=== PATIENT | female | born 1980 | race Caucasian/White ===

== ENCOUNTER → 2016-10-11 | Outpatient (CLI) | payer MEDICAID ==
[~2016-10-11] MED LIST: CPR500T PO; HYDR-229 PO; HYDR-3583 PO; LOSA50TA6 PO; ONDN4T PO; SULF1TAB35 PO; TRM50T PO
--- OUTSIDE RECORDS SUMMARY | 2016-10-11 09:10 | XMS REPORT | Continuity of Care Document ---
Author Author [facility] Address Unknown Phone Unavailable Allergies Active Description Code Type Severity Reaction Onset Reported/Identified Relationship to Patient Clinical Status Yes Bactrim DS 800-160 mg tablet Drug Allergy N/A N/A 10/24/2014 Medications Problems Date Dx Coded Attending Type Code Diagnosis Diagnosed By 03/05/2008 V05.8 Gardasil, Shingles, Other Specified Disease 03/05/2008 WESLEY CLARK DO V05.8 Gardasil, Shingles, Other Specified Disease 03/05/2008 WESLEY CLARK DO V05.8 Gardasil, Shingles, Other Specified Disease 03/05/2008 V05.8 Gardasil, Shingles, Other Specified Disease 03/05/2008 V05.8 Gardasil, Shingles, Other Specified Disease 03/05/2008 V05.8 Gardasil, Shingles, Other Specified Disease 03/05/2008 V05.8 Gardasil, Shingles, Other Specified Disease 03/05/2008 V05.8 Gardasil, Shingles, Other Specified Disease 03/05/2008 BRIGITTE LEWIS MD V05.8 Gardasil, Shingles, Other Specified Disease 03/05/2008 WESLEY CLARK DO V05.8 Gardasil, Shingles, Other Specified Disease 03/05/2008 CHRIS MORALES APRN A V05.8 Gardasil, Shingles, Other Specified Disease 03/05/2008 JHONNY JENSEN APRNA S V05.8 Gardasil, Shingles, Other Specified Disease 03/05/2008 LYNN JENSEN APRN S V05.8 Gardasil, Shingles, Other Specified Disease 03/05/2008 CARMEN WHITE CHRIS A V05.8 Gardasil, Shingles, Other Specified Disease 03/05/2008 JHONNY JENSEN APRNA S V05.8 Gardasil, Shingles, Other Specified Disease 03/05/2008 EDMUND SKAGGS APRN V05.8 Gardasil, Shingles, Other Specified Disease 03/05/2008 EDMUND SKAGGS APRN V05.8 Gardasil, Shingles, Other Specified Disease 03/05/2008 LYNN JENSEN APRN S V05.8 Gardasil, Shingles, Other Specified Disease 03/05/2008 CHRIS MORALES APRN A V05.8 Gardasil, Shingles, Other Specified Disease 03/05/2008 MALLORY MORALES APRNIDI A V05.8 Gardasil, Shingles, Other Specified Disease 03/05/2008 LYNN JENSEN APRN S V05.8 Gardasil, Shingles, Other Specified Disease 04/05/2008 840.9 Sprain/strain Shoulder/arm 04/05/2008 WESLEY CLARK DO 840.9 Sprain/strain Shoulder/arm 04/05/2008 WESLEY CLARK DO 840.9 Sprain/strain Shoulder/arm 04/05/2008 840.9 Sprain/strain Shoulder/arm 04/05/2008 840.9 Sprain/strain Shoulder/arm 04/05/2008 840.9 Sprain/strain Shoulder/arm 04/05/2008 840.9 Sprain/strain Shoulder/arm 04/05/2008 840.9 Sprain/strain Shoulder/arm 04/05/2008 BRIGITTE LEWIS MD 840.9 Sprain/strain Shoulder/arm 04/05/2008 WESLEY CLARK DO 840.9 Sprain/strain Shoulder/arm 04/05/2008 CHRIS MORALES APRN A 840.9 Sprain/strain Shoulder/arm 04/05/2008 LYNN JENSEN APRN S 840.9 Sprain/strain Shoulder/arm 04/05/2008 LYNN JENSEN APRN S 840.9 Sprain/strain Shoulder/arm 04/05/2008 CHRIS MORALES APRN A 840.9 Sprain/strain Shoulder/arm 04/05/2008 LYNN JENSEN APRN S 840.9 Sprain/strain Shoulder/arm 04/05/2008 GILES RAILWAY EQUIPMENT OPERATOR, EDMUND T 840.9 Sprain/strain Shoulder/arm 04/05/2008 GILES HOLDERN, EDMUND T 840.9 Sprain/strain Shoulder/arm 04/05/2008 MIKEY RAILWAY EQUIPMENT OPERATOR, LYNN S 840.9 Sprain/strain Shoulder/arm 04/05/2008 CAREMN RAILWAY EQUIPMENT OPERATOR, CHRIS A 840.9 Sprain/strain Shoulder/arm 04/05/2008 CARMEN RAILWAY EQUIPMENT OPERATOR, CHRIS A 840.9 Sprain/strain Shoulder/arm 04/05/2008 MIKEY RAILWAY EQUIPMENT OPERATOR, LYNN S 840.9 Sprain/strain Shoulder/arm 06/03/2008 346.90 Migraine Unspecified Without Intractable Migraine 06/03/2008 WESLEY CLARK DO K 346.90 Migraine Unspecified Without Intractable Migraine 06/03/2008 WESLEY CLARK DO K 346.90 Migraine Unspecified Without Intractable Migraine 06/03/2008 346.90 Migraine Unspecified Without Intractable Migraine 06/03/2008 346.90 Migraine Unspecified Without Intractable Migraine 06/03/2008 346.90 Migraine Unspecified Without Intractable Migraine 06/03/2008 346.90 Migraine Unspecified Without Intractable Migraine 06/03/2008 346.90 Migraine Unspecified Without Intractable Migraine 06/03/2008 BRIGITTE LEWIS MD 346.90 Migraine Unspecified Without Intractable Migraine 06/03/2008 WESLEY CLARK DO K 346.90 Migraine Unspecified Without Intractable Migraine 06/03/2008 CARMEN RAILWAY EQUIPMENT OPERATOR, CHRIS A 346.90 Migraine Unspecified Without Intractable Migraine 06/03/2008 MIKEY RAILWAY EQUIPMENT OPERATOR, LYNN S 346.90 Migraine Unspecified Without Intractable Migraine 06/03/2008 MIKEY HOLDERN, LYNN S 346.90 Migraine Unspecified Without Intractable Migraine 06/03/2008 CARMEN RAILWAY EQUIPMENT OPERATOR, CHRIS A 346.90 Migraine Unspecified Without Intractable Migraine 06/03/2008 MIKEY HOLDERN, LYNN S 346.90 Migraine Unspecified Without Intractable Migraine 06/03/2008 EDMUND SKAGGS APRN T 346.90 Migraine Unspecified Without Intractable Migraine 06/03/2008 EDMUND SKAGGS APRN T 346.90 Migraine Unspecified Without Intractable Migraine 06/03/2008 MIKEY RAILWAY EQUIPMENT OPERATOR, LYNN S 346.90 Migraine Unspecified Without Intractable Migraine 06/03/2008 CARMEN RAILWAY EQUIPMENT OPERATOR, CHRIS A 346.90 Migraine Unspecified Without Intractable Migraine 06/03/2008 CARMEN RAILWAY EQUIPMENT OPERATOR, CHRIS A 346.90 Migraine Unspecified Without Intractable Migraine 06/03/2008 MIKEY RAILWAY EQUIPMENT OPERATOR, LYNN S 346.90 Migraine Unspecified Without Intractable Migraine 11/13/2008 V05.9 Immunization, Single, Unspec. 11/13/2008 V72.41 Test Negative Result 11/13/2008 AMBER DO WESLEY K V05.9 Immunization, Single, Unspec. 11/13/2008 CLARK DO, WESLEY K V72.41 Test Negative Result 11/13/2008 CLARK DO, WESLEY K V05.9 Immunization, Single, Unspec. 11/13/2008 CLARK DO, WESLEY K V72.41 Test Negative Result 11/13/2008 V05.9 Immunization, Single, Unspec. 11/13/2008 V72.41 Test Negative Result 11/13/2008 V05.9 Immunization, Single, Unspec. 11/13/2008 V72.41 Test Negative Result 11/13/2008 V05.9 Immunization, Single, Unspec. 11/13/2008 V72.41 Test Negative Result 11/13/2008 V05.9 Immunization, Single, Unspec. 11/13/2008 V72.41 Test Negative Result 11/13/2008 V05.9 Immunization, Single, Unspec. 11/13/2008 V72.41 Test Negative Result 11/13/2008 BRIGITTE LEWIS MD V05.9 Immunization, Single, Unspec. 11/13/2008 BRIGITTE LEWIS MD V72.41 Test Negative Result 11/13/2008 AMINA CLARK DOA K V05.9 Immunization, Single, Unspec. 11/13/2008 AMBER CLIFTON, WESLEY K V72.41 Test Negative Result 11/13/2008 CARMEN RAILWAY EQUIPMENT OPERATOR, CHRIS A V05.9 Immunization, Single, Unspec. 11/13/2008 CARMEN RAILWAY EQUIPMENT OPERATOR, CHRIS A V72.41 Test Negative Result 11/13/2008 JHONNY JENSEN APRNA S V05.9 Immunization, Single, Unspec. 11/13/2008 MIKEY RAILWAY EQUIPMENT OPERATORLYNN El S V72.41 Test Negative Result 11/13/2008 JHONNY JENSEN APRNA S V05.9 Immunization, Single, Unspec. 11/13/2008 JHONNY JENSEN APRNA S V72.41 Test Negative Result 11/13/2008 MALLORY MORALES APRNIDI A V05.9 Immunization, Single, Unspec. 11/13/2008 CARMEN WHITE CHRIS A V72.41 Test Negative Result 11/13/2008 JHONNY JENSEN APRNA S V05.9 Immunization, Single, Unspec. 11/13/2008 KELLEY JENSEN APRNNDA S V72.41 Test Negative Result 11/13/2008 GILES HOLDERNEDMUND T V05.9 Immunization, Single, Unspec. 11/13/2008 GILES HOLDERN, EDMUND T V72.41 Test Negative Result 11/13/2008 GILES HOLDERN, EDMUND T V05.9 Immunization, Single, Unspec. 11/13/2008 GILES WHITE EDMUND T V72.41 Test Negative Result 11/13/2008 MIKEY HOLDERNJHONNYA S V05.9 Immunization, Single, Unspec. 11/13/2008 JHONNY JENSEN APRNA S V72.41 Test Negative Result 11/13/2008 MALLORY MORALES APRNIDI A V05.9 Immunization, Single, Unspec. 11/13/2008 MALLORY MORALES APRNIDI A V72.41 Test Negative Result 11/13/2008 CARMEN WHITE CHRIS A V05.9 Immunization, Single, Unspec. 11/13/2008 CARMEN WHITE CHRIS A V72.41 Test Negative Result 11/13/2008 MIKEY HOLDERNJHONNYA S V05.9 Immunization, Single, Unspec. 11/13/2008 KELLEY JENSEN APRNNDA S V72.41 Test Negative Result 11/15/2008 692.9 Dermatitis 11/15/2008 WESLEY CLARK DO 692.9 Dermatitis 11/15/2008 WESLEY CLARK DO 692.9 Dermatitis 11/15/2008 692.9 Dermatitis 11/15/2008 692.9 Dermatitis 11/15/2008 692.9 Dermatitis 11/15/2008 692.9 Dermatitis 11/15/2008 692.9 Dermatitis 11/15/2008 BRIGITTE LEWIS MD 692.9 Dermatitis 11/15/2008 WESLEY CLARK DO 692.9 Dermatitis 11/15/2008 CARMEN RAILWAY EQUIPMENT OPERATOR, CHRIS A 692.9 Dermatitis 11/15/2008 MIKEY RAILWAY EQUIPMENT OPERATOR, YLNN S 692.9 Dermatitis 11/15/2008 MIKEY RAILWAY EQUIPMENT OPERATOR, LYNN S 692.9 Dermatitis 11/15/2008 CARMEN RAILWAY EQUIPMENT OPERATOR, CHRIS A 692.9 Dermatitis 11/15/2008 MIKEY RAILWAY EQUIPMENT OPERATOR, LYNN S 692.9 Dermatitis 11/15/2008 GILES RAILWAY EQUIPMENT OPERATOR, EDMUND T 692.9 Dermatitis 11/15/2008 GILES RAILWAY EQUIPMENT OPERATOR, EDMUND T 692.9 Dermatitis 11/15/2008 MIKEY RAILWAY EQUIPMENT OPERATOR, LYNN S 692.9 Dermatitis 11/15/2008 CARMEN RAILWAY EQUIPMENT OPERATOR, CHRIS A 692.9 Dermatitis 11/15/2008 CARMEN RAILWAY EQUIPMENT OPERATOR, CHRIS A 692.9 Dermatitis 11/15/2008 MIKEY RAILWAY EQUIPMENT OPERATOR, LYNN S 692.9 Dermatitis 12/27/2008 V25.49 Gynecologic Service Prescrip Of Contracept Agent - Repeat Rx 12/27/2008 V72.31 Pelvic Exam (internal) 12/27/2008 WESLEY CLARK DO V25.49 Gynecologic Service Prescrip Of Contracept Agent - Repeat Rx 12/27/2008 WESLEY CLARK DO V72.31 Pelvic Exam (internal) 12/27/2008 WESLEY CLARK DO V25.49 Gynecologic Service Prescrip Of Contracept Agent - Repeat Rx 12/27/2008 WESLEY CLARK DO V72.31 Pelvic Exam (internal) 12/27/2008 V25.49 Gynecologic Service Prescrip Of Contracept Agent - Repeat Rx 12/27/2008 V72.31 Pelvic Exam (internal) 12/27/2008 V25.49 Gynecologic Service Prescrip Of Contracept Agent - Repeat Rx 12/27/2008 V72.31 Pelvic Exam (internal) 12/27/2008 V25.49 Gynecologic Service Prescrip Of Contracept Agent - Repeat Rx 12/27/2008 V72.31 Pelvic Exam (internal) 12/27/2008 V25.49 Gynecologic Service Prescrip Of Contracept Agent - Repeat Rx 12/27/2008 V72.31 Pelvic Exam (internal) 12/27/2008 V25.49 Gynecologic Service Prescrip Of Contracept Agent - Repeat Rx 12/27/2008 V72.31 Pelvic Exam (internal) 12/27/2008 BRIGITTE LEWIS MD V25.49 Gynecologic Service Prescrip Of Contracept Agent - Repeat Rx 12/27/2008 BRIGITTE LEWIS MD V72.31 Pelvic Exam (internal) 12/27/2008 WESLEY CLARK DO V25.49 Gynecologic Service Prescrip Of Contracept Agent - Repeat Rx 12/27/2008 WESLEY CLARK DO V72.31 Pelvic Exam (internal) 12/27/2008 CHRIS MORALES APRN A V25.49 Gynecologic Service Prescrip Of Contracept Agent - Repeat Rx 12/27/2008 CHRIS MORALES APRN A V72.31 Pelvic Exam (internal) 12/27/2008 LYNN JENSEN APRN V25.49 Gynecologic Service Prescrip Of Contracept Agent - Repeat Rx 12/27/2008 LYNN JENSEN APRN V72.31 Pelvic Exam (internal) 12/27/2008 LYNN JENSEN APRN V25.49 Gynecologic Service Prescrip Of Contracept Agent - Repeat Rx 12/27/2008 LYNN JENSEN APRN V72.31 Pelvic Exam (internal) 12/27/2008 CHRIS MORALES APRN A V25.49 Gynecologic Service Prescrip Of Contracept Agent - Repeat Rx 12/27/2008 CHRIS MORALES APRN A V72.31 Pelvic Exam (internal) 12/27/2008 LYNN JENSEN APRN V25.49 Gynecologic Service Prescrip Of Contracept Agent - Repeat Rx 12/27/2008 LYNN JENSEN APRN V72.31 Pelvic Exam (internal) 12/27/2008 EDMUND SKGAGS APRN V25.49 Gynecologic Service Prescrip Of Contracept Agent - Repeat Rx 12/27/2008 EDMUND SKAGGS APRN V72.31 Pelvic Exam (internal) 12/27/2008 EDMUND SKAGGS APRN V25.49 Gynecologic Service Prescrip Of Contracept Agent - Repeat Rx 12/27/2008 EDMUND SKAGGS APRN V72.31 Pelvic Exam (internal) 12/27/2008 LYNN JENSEN APRN V25.49 Gynecologic Service Prescrip Of Contracept Agent - Repeat Rx 12/27/2008 LYNN JENSEN APRN V72.31 Pelvic Exam (internal) 12/27/2008 CARMENCHRIS El APRN A V25.49 Gynecologic Service Prescrip Of Contracept Agent - Repeat Rx 12/27/2008 CARMENCHRIS El APRN A V72.31 Pelvic Exam (internal) 12/27/2008 CARMENCHRIS El APRN A V25.49 Gynecologic Service Prescrip Of Contracept Agent - Repeat Rx 12/27/2008 CARMENCHRIS El APRN A V72.31 Pelvic Exam (internal) 12/27/2008 LYNN JENSEN APRN S V25.49 Gynecologic Service Prescrip Of Contracept Agent - Repeat Rx 12/27/2008 LYNN JENSEN APRN S V72.31 Pelvic Exam (internal) 11/24/2009 388.70 Otalgia 11/24/2009 477.9 Rhinitis 11/24/2009 WESLEY CLARK DO 388.70 Otalgia 11/24/2009 WESLEY CLARK DO 477.9 Rhinitis 11/24/2009 WESLEY CLARK DO 388.70 Otalgia 11/24/2009 WESLEY CLARK DO K 477.9 Rhinitis 11/24/2009 388.70 Otalgia 11/24/2009 477.9 Rhinitis 11/24/2009 388.70 Otalgia 11/24/2009 477.9 Rhinitis 11/24/2009 388.70 Otalgia 11/24/2009 477.9 Rhinitis 11/24/2009 388.70 Otalgia 11/24/2009 477.9 Rhinitis 11/24/2009 388.70 Otalgia 11/24/2009 477.9 Rhinitis 11/24/2009 BRIGITTE LEWIS MD 388.70 Otalgia 11/24/2009 BRIGITTE LEWIS MD 477.9 Rhinitis 11/24/2009 CLARK WESLEY CLIFTON K 388.70 Otalgia 11/24/2009 CLARK WESLEY CLIFTON K 477.9 Rhinitis 11/24/2009 CHRIS MORALES APRN A 388.70 Otalgia 11/24/2009 CHRIS MORALES APRN A 477.9 Rhinitis 11/24/2009 LYNN JENSEN APRN S 388.70 Otalgia 11/24/2009 LYNN JENSEN APRN 477.9 Rhinitis 11/24/2009 MIKEY RAILWAY EQUIPMENT OPERATOR, LYNN S 388.70 Otalgia 11/24/2009 MIKEY RAILWAY EQUIPMENT OPERATOR, LYNN S 477.9 Rhinitis 11/24/2009 CARMEN RAILWAY EQUIPMENT OPERATOR, CHRIS A 388.70 Otalgia 11/24/2009 CARMEN RAILWAY EQUIPMENT OPERATOR, CHRIS A 477.9 Rhinitis 11/24/2009 MIKEY RAILWAY EQUIPMENT OPERATOR, LYNN S 388.70 Otalgia 11/24/2009 MIKEY RAILWAY EQUIPMENT OPERATOR, LYNN S 477.9 Rhinitis 11/24/2009 GILES RAILWAY EQUIPMENT OPERATOR, EDMUND T 388.70 Otalgia 11/24/2009 GILES RAILWAY EQUIPMENT OPERATOR, EDMUND T 477.9 Rhinitis 11/24/2009 GILES RAILWAY EQUIPMENT OPERATOR, EDMUND T 388.70 Otalgia 11/24/2009 GILES RAILWAY EQUIPMENT OPERATOR, EDMUND T 477.9 Rhinitis 11/24/2009 MIKEY RAILWAY EQUIPMENT OPERATOR, LYNN S 388.70 Otalgia 11/24/2009 MIKEY RAILWAY EQUIPMENT OPERATOR, LYNN S 477.9 Rhinitis 11/24/2009 CARMEN RAILWAY EQUIPMENT OPERATOR, CHRIS A 388.70 Otalgia 11/24/2009 CARMEN RAILWAY EQUIPMENT OPERATOR, CHRIS A 477.9 Rhinitis 11/24/2009 CARMEN RAILWAY EQUIPMENT OPERATOR, CHRIS A 388.70 Otalgia 11/24/2009 CARMEN RAILWAY EQUIPMENT OPERATOR, CHRIS A 477.9 Rhinitis 11/24/2009 MIKEY RAILWAY EQUIPMENT OPERATOR, LYNN S 388.70 Otalgia 11/24/2009 MIKEY RAILWAY EQUIPMENT OPERATOR, LYNN S 477.9 Rhinitis 01/07/2010 616.10 Vaginitis Vulvovaginitis Unspecified 01/07/2010 WESLEY CLARK DO 616.10 Vaginitis Vulvovaginitis Unspecified 01/07/2010 WESLEY CLARK DO 616.10 Vaginitis Vulvovaginitis Unspecified 01/07/2010 616.10 Vaginitis Vulvovaginitis Unspecified 01/07/2010 616.10 Vaginitis Vulvovaginitis Unspecified 01/07/2010 616.10 Vaginitis Vulvovaginitis Unspecified 01/07/2010 616.10 Vaginitis Vulvovaginitis Unspecified 01/07/2010 616.10 Vaginitis Vulvovaginitis Unspecified 01/07/2010 BRIGITTE LEWIS MD 616.10 Vaginitis Vulvovaginitis Unspecified 01/07/2010 WESLEY CLARK DO K 616.10 Vaginitis Vulvovaginitis Unspecified 01/07/2010 CARMEN RAILWAY EQUIPMENT OPERATOR, CHRIS A 616.10 Vaginitis Vulvovaginitis Unspecified 01/07/2010 MIKEY RAILWAY EQUIPMENT OPERATOR, LYNN S 616.10 Vaginitis Vulvovaginitis Unspecified 01/07/2010 MIKEY RAILWAY EQUIPMENT OPERATOR, LYNN S 616.10 Vaginitis Vulvovaginitis Unspecified 01/07/2010 CARMEN RAILWAY EQUIPMENT OPERATOR, CHRIS A 616.10 Vaginitis Vulvovaginitis Unspecified 01/07/2010 MIKEY HOLDERN, LYNN S 616.10 Vaginitis Vulvovaginitis Unspecified 01/07/2010 EDMUND SKAGGS APRN T 616.10 Vaginitis Vulvovaginitis Unspecified 01/07/2010 EDMUND SKAGGS APRN T 616.10 Vaginitis Vulvovaginitis Unspecified 01/07/2010 MIKEY RAILWAY EQUIPMENT OPERATOR, LYNN S 616.10 Vaginitis Vulvovaginitis Unspecified 01/07/2010 CARMEN RAILWAY EQUIPMENT OPERATOR, CHRIS A 616.10 Vaginitis Vulvovaginitis Unspecified 01/07/2010 CARMEN RAILWAY EQUIPMENT OPERATOR, CHRIS A 616.10 Vaginitis Vulvovaginitis Unspecified 01/07/2010 MIKEY WHITE, LYNN S 616.10 Vaginitis Vulvovaginitis Unspecified 05/28/2010 592.0 Calculus Of Kidney 05/28/2010 WESLEY CLARK DO K 592.0 Calculus Of Kidney 05/28/2010 WESLEY CLARK DO K 592.0 Calculus Of Kidney 05/28/2010 592.0 Calculus Of Kidney 05/28/2010 592.0 Calculus Of Kidney 05/28/2010 592.0 Calculus Of Kidney 05/28/2010 592.0 Calculus Of Kidney 05/28/2010 592.0 Calculus Of Kidney 05/28/2010 BRIGITTE LEWIS MD 592.0 Calculus Of Kidney 05/28/2010 CLARK DO, WESLEY K 592.0 Calculus Of Kidney 05/28/2010 CARMEN RAILWAY EQUIPMENT OPERATOR, CHRIS A 592.0 Calculus Of Kidney 05/28/2010 MIKEY RAILWAY EQUIPMENT OPERATOR, LYNN S 592.0 Calculus Of Kidney 05/28/2010 MIKEY RAILWAY EQUIPMENT OPERATOR, LYNN S 592.0 Calculus Of Kidney 05/28/2010 CARMEN RAILWAY EQUIPMENT OPERATOR, CHRIS A 592.0 Calculus Of Kidney 05/28/2010 MIKEY RAILWAY EQUIPMENT OPERATOR, LYNN S 592.0 Calculus Of Kidney 05/28/2010 GILES RAILWAY EQUIPMENT OPERATOR, EDMUND T 592.0 Calculus Of Kidney 05/28/2010 GILES RAILWAY EQUIPMENT OPERATOR, EDMUND T 592.0 Calculus Of Kidney 05/28/2010 MIKEY RAILWAY EQUIPMENT OPERATOR, LYNN S 592.0 Calculus Of Kidney 05/28/2010 CARMEN RAILWAY EQUIPMENT OPERATOR, CHRIS A 592.0 Calculus Of Kidney 05/28/2010 CARMEN RAILWAY EQUIPMENT OPERATOR, CHRIS A 592.0 Calculus Of Kidney 05/28/2010 MIKEY RAILWAY EQUIPMENT OPERATOR, LYNN S 592.0 Calculus Of Kidney 07/27/2011 724.2 Back Pain, Lower 07/27/2011 V25.9 CONTRACEPTION MANAGEMENT 07/27/2011 CLARK DO, WESLEY K 724.2 Back Pain, Lower 07/27/2011 CLARK DO, WESLEY K V25.9 CONTRACEPTION MANAGEMENT 07/27/2011 CLARK DO WESLEY K 724.2 Back Pain, Lower 07/27/2011 CLARK DO WESLEY K V25.9 CONTRACEPTION MANAGEMENT 07/27/2011 724.2 Back Pain, Lower 07/27/2011 V25.9 CONTRACEPTION MANAGEMENT 07/27/2011 724.2 Back Pain, Lower 07/27/2011 V25.9 CONTRACEPTION MANAGEMENT 07/27/2011 724.2 Back Pain, Lower 07/27/2011 V25.9 CONTRACEPTION MANAGEMENT 07/27/2011 724.2 Back Pain, Lower 07/27/2011 V25.9 CONTRACEPTION MANAGEMENT 07/27/2011 724.2 Back Pain, Lower 07/27/2011 V25.9 CONTRACEPTION MANAGEMENT 07/27/2011 BRIGITTE LEWIS MD 724.2 Back Pain, Lower 07/27/2011 BRIGITTE LEWIS MD V25.9 CONTRACEPTION MANAGEMENT 07/27/2011 CLARK DO, WESLEY K 724.2 Back Pain, Lower 07/27/2011 CLARK DO, WESLEY K V25.9 CONTRACEPTION MANAGEMENT 07/27/2011 CARMEN RAILWAY EQUIPMENT OPERATOR, CHRIS A 724.2 Back Pain, Lower 07/27/2011 CARMEN RAILWAY EQUIPMENT OPERATOR, CHRIS A V25.9 CONTRACEPTION MANAGEMENT 07/27/2011 MIKEY RAILWAY EQUIPMENT OPERATOR, LYNN S 724.2 Back Pain, Lower 07/27/2011 MIKEY RAILWAY EQUIPMENT OPERATOR, LYNN S V25.9 CONTRACEPTION MANAGEMENT 07/27/2011 MIKEY RAILWAY EQUIPMENT OPERATOR, LYNN S 724.2 Back Pain, Lower 07/27/2011 MIKEY RAILWAY EQUIPMENT OPERATOR, LYNN S V25.9 CONTRACEPTION MANAGEMENT 07/27/2011 CARMEN RAILWAY EQUIPMENT OPERATOR, CHRIS A 724.2 Back Pain, Lower 07/27/2011 CARMEN RAILWAY EQUIPMENT OPERATOR, CHRIS A V25.9 CONTRACEPTION MANAGEMENT 07/27/2011 MIKEY RAILWAY EQUIPMENT OPERATOR, LYNN S 724.2 Back Pain, Lower 07/27/2011 MIKEY RAILWAY EQUIPMENT OPERATOR, LYNN S V25.9 CONTRACEPTION MANAGEMENT 07/27/2011 GILES RAILWAY EQUIPMENT OPERATOR, EDMUND T 724.2 Back Pain, Lower 07/27/2011 GILES RAILWAY EQUIPMENT OPERATOR, EDMUND T V25.9 CONTRACEPTION MANAGEMENT 07/27/2011 GILES RAILWAY EQUIPMENT OPERATOR, EDMUND T 724.2 Back Pain, Lower 07/27/2011 GILES RAILWAY EQUIPMENT OPERATOR, EDMUND T V25.9 CONTRACEPTION MANAGEMENT 07/27/2011 MIKEY RAILWAY EQUIPMENT OPERATOR, LYNN S 724.2 Back Pain, Lower 07/27/2011 MIKEY RAILWAY EQUIPMENT OPERATOR, LYNN S V25.9 CONTRACEPTION MANAGEMENT 07/27/2011 CARMEN RAILWAY EQUIPMENT OPERATOR, CHRIS A 724.2 Back Pain, Lower 07/27/2011 CARMEN RAILWAY EQUIPMENT OPERATOR, CHRSI A V25.9 CONTRACEPTION MANAGEMENT 07/27/2011 CARMEN RAILWAY EQUIPMENT OPERATOR, CHRIS A 724.2 Back Pain, Lower 07/27/2011 CARMEN RAILWAY EQUIPMENT OPERATOR, CHRIS A V25.9 CONTRACEPTION MANAGEMENT 07/27/2011 MIKEY RAILWAY EQUIPMENT OPERATOR, LYNN S 724.2 Back Pain, Lower 07/27/2011 IMKEY RAILWAY EQUIPMENT OPERATOR, LYNN S V25.9 CONTRACEPTION MANAGEMENT 11/19/2011 401.9 HYPERTENSION, UNSPECIFIED ESSENTIAL 11/19/2011 CLARK DO, WESLEY K 401.9 HYPERTENSION, UNSPECIFIED ESSENTIAL 11/19/2011 CLARK DO, WESLEY K 401.9 HYPERTENSION, UNSPECIFIED ESSENTIAL 11/19/2011 401.9 HYPERTENSION, UNSPECIFIED ESSENTIAL 11/19/2011 401.9 HYPERTENSION, UNSPECIFIED ESSENTIAL 11/19/2011 401.9 HYPERTENSION, UNSPECIFIED ESSENTIAL 11/19/2011 401.9 HYPERTENSION, UNSPECIFIED ESSENTIAL 11/19/2011 401.9 HYPERTENSION, UNSPECIFIED ESSENTIAL 11/19/2011 BRIGITTE LEWIS MD 401.9 HYPERTENSION, UNSPECIFIED ESSENTIAL 11/19/2011 CLARK DO, WESLEY K 401.9 HYPERTENSION, UNSPECIFIED ESSENTIAL 11/19/2011 CHRIS MORALES APRN A 401.9 HYPERTENSION, UNSPECIFIED ESSENTIAL 11/19/2011 JHONNY JENSEN APRNA S 401.9 HYPERTENSION, UNSPECIFIED ESSENTIAL 11/19/2011 JHONNY JENSEN APRNA S 401.9 HYPERTENSION, UNSPECIFIED ESSENTIAL 11/19/2011 CHRIS MORALES APRN A 401.9 HYPERTENSION, UNSPECIFIED ESSENTIAL 11/19/2011 JHONNY JENSEN APRNA S 401.9 HYPERTENSION, UNSPECIFIED ESSENTIAL 11/19/2011 EDMUND SKAGGS APRN 401.9 HYPERTENSION, UNSPECIFIED ESSENTIAL 11/19/2011 EDMUND SKAGGS APRN 401.9 HYPERTENSION, UNSPECIFIED ESSENTIAL 11/19/2011 JHONNY JENSEN APRNA S 401.9 HYPERTENSION, UNSPECIFIED ESSENTIAL 11/19/2011 CHRIS MORALES APRN A 401.9 HYPERTENSION, UNSPECIFIED ESSENTIAL 11/19/2011 MALLORY MORALES APRNIDI A 401.9 HYPERTENSION, UNSPECIFIED ESSENTIAL 11/19/2011 JHONNY JENSEN APRNA S 401.9 HYPERTENSION, UNSPECIFIED ESSENTIAL 03/01/2012 599.72 Microscopic Hematuria 03/01/2012 992.6 Heat Fatigue Transient 03/01/2012 CLARK DO, WESLEY K 599.72 Microscopic Hematuria 03/01/2012 CLARK DO, WESLEY K 992.6 Heat Fatigue Transient 03/01/2012 CLARK DO, WESLEY K 599.72 Microscopic Hematuria 03/01/2012 CLARK DO, WESLEY K 992.6 Heat Fatigue Transient 03/01/2012 599.72 Microscopic Hematuria 03/01/2012 992.6 Heat Fatigue Transient 03/01/2012 599.72 Microscopic Hematuria 03/01/2012 992.6 Heat Fatigue Transient 03/01/2012 599.72 Microscopic Hematuria 03/01/2012 992.6 Heat Fatigue Transient 03/01/2012 599.72 Microscopic Hematuria 03/01/2012 992.6 Heat Fatigue Transient 03/01/2012 599.72 Microscopic Hematuria 03/01/2012 992.6 Heat Fatigue Transient 03/01/2012 BRIGITTE LEWIS MD 599.72 Microscopic Hematuria 03/01/2012 BRIGITTE LEWIS MD 992.6 Heat Fatigue Transient 03/01/2012 CLARK DO WESLEY K 599.72 Microscopic Hematuria 03/01/2012 CLARK DO, WESLEY K 992.6 Heat Fatigue Transient 03/01/2012 MALLORY MORALES APRNIDI A 599.72 Microscopic Hematuria 03/01/2012 CARMENMALLORY CANALES APRNIDI A 992.6 Heat Fatigue Transient 03/01/2012 JHONNY JENSEN APRNA S 599.72 Microscopic Hematuria 03/01/2012 JHONNY JENSEN APRNA S 992.6 Heat Fatigue Transient 03/01/2012 JHONNY JENSEN APRNA S 599.72 Microscopic Hematuria 03/01/2012 JHONNY JENSEN APRNA S 992.6 Heat Fatigue Transient 03/01/2012 MALLORY MORALES APRNIDI A 599.72 Microscopic Hematuria 03/01/2012 CARMENMALLORY El APRNIDI A 992.6 Heat Fatigue Transient 03/01/2012 KELLEY JENSEN APRNNDA S 599.72 Microscopic Hematuria 03/01/2012 JHONNY JENSEN APRNA S 992.6 Heat Fatigue Transient 03/01/2012 EDMUND SKAGGS APRN 599.72 Microscopic Hematuria 03/01/2012 EDMUND SKAGGS APRN 992.6 Heat Fatigue Transient 03/01/2012 DEMUND SKAGGS APRN 599.72 Microscopic Hematuria 03/01/2012 EDMUND SKAGGS APRN 992.6 Heat Fatigue Transient 03/01/2012 JHONNY JENSEN APRNA S 599.72 Microscopic Hematuria 03/01/2012 LYNN JENSEN APRN S 992.6 Heat Fatigue Transient 03/01/2012 CARMEN WHITE, CHRIS A 599.72 Microscopic Hematuria 03/01/2012 CARMEN WHITE, CHRIS A 992.6 Heat Fatigue Transient 03/01/2012 CARMEN WHITE, CHRIS A 599.72 Microscopic Hematuria 03/01/2012 CARMEN WHITE, CHRIS A 992.6 Heat Fatigue Transient 03/01/2012 JHONNY JENSEN APRNA S 599.72 Microscopic Hematuria 03/01/2012 JHONNY JENSEN APRNA S 992.6 Heat Fatigue Transient 03/31/2012 783.41 Failure To Thrive 03/31/2012 WESLEY CLARK DO K 783.41 Failure To Thrive 03/31/2012 WESLEY CLARK DO 783.41 Failure To Thrive 03/31/2012 783.41 Failure To Thrive 03/31/2012 783.41 Failure To Thrive 03/31/2012 783.41 Failure To Thrive 03/31/2012 783.41 Failure To Thrive 03/31/2012 783.41 Failure To Thrive 03/31/2012 BRIGITTE LEWIS MD 783.41 Failure To Thrive 03/31/2012 WESLEY CLARK DO 783.41 Failure To Thrive 03/31/2012 CHRIS MORALES APRN A 783.41 Failure To Thrive 03/31/2012 LYNN JENSEN APRN S 783.41 Failure To Thrive 03/31/2012 LYNN JENSEN APRN S 783.41 Failure To Thrive 03/31/2012 CHRIS MORALES APRN A 783.41 Failure To Thrive 03/31/2012 LYNN JENSEN APRN S 783.41 Failure To Thrive 03/31/2012 EDMUND SKAGGS APRN 783.41 Failure To Thrive 03/31/2012 EDMUND SKAGGS APRN 783.41 Failure To Thrive 03/31/2012 LYNN JENSEN APRN S 783.41 Failure To Thrive 03/31/2012 CHRIS MORALES APRN A 783.41 Failure To Thrive 03/31/2012 CHRIS MORALES APRN A 783.41 Failure To Thrive 03/31/2012 LYNN JENSEN APRN S 783.41 Failure To Thrive 07/12/2012 599.0 URINARY TRACT INFECTION 07/12/2012 703.0 INGROWN TOENAIL (infection) 07/12/2012 AMBER CLIFTON WESLEY K 599.0 URINARY TRACT INFECTION 07/12/2012 CLARK DO, WESLEY K 703.0 INGROWN TOENAIL (infection) 07/12/2012 AMBER CLIFTON WESLEY K 599.0 URINARY TRACT INFECTION 07/12/2012 CLARK DO, WESLEY K 703.0 INGROWN TOENAIL (infection) 07/12/2012 599.0 URINARY TRACT INFECTION 07/12/2012 703.0 INGROWN TOENAIL (infection) 07/12/2012 599.0 URINARY TRACT INFECTION 07/12/2012 703.0 INGROWN TOENAIL (infection) 07/12/2012 599.0 URINARY TRACT INFECTION 07/12/2012 703.0 INGROWN TOENAIL (infection) 07/12/2012 599.0 URINARY TRACT INFECTION 07/12/2012 703.0 INGROWN TOENAIL (infection) 07/12/2012 599.0 URINARY TRACT INFECTION 07/12/2012 703.0 INGROWN TOENAIL (infection) 07/12/2012 BRIGITTE LEWIS MD 599.0 URINARY TRACT INFECTION 07/12/2012 BRIGITTE LEWIS MD 703.0 INGROWN TOENAIL (infection) 07/12/2012 AMBER CLIFTON WESLEY K 599.0 URINARY TRACT INFECTION 07/12/2012 AMBER CLIFTON WESLEY K 703.0 INGROWN TOENAIL (infection) 07/12/2012 CHRIS MORALES APRN A 599.0 URINARY TRACT INFECTION 07/12/2012 CARMEN WHITE CHRIS A 703.0 INGROWN TOENAIL (infection) 07/12/2012 JHONNY JENSEN APRNA S 599.0 URINARY TRACT INFECTION 07/12/2012 LYNN JENSEN APRN S 703.0 INGROWN TOENAIL (infection) 07/12/2012 JHONNY JENSEN APRNA S 599.0 URINARY TRACT INFECTION 07/12/2012 LYNN JENSEN APRN S 703.0 INGROWN TOENAIL (infection) 07/12/2012 CARMEN RAILWAY EQUIPMENT OPERATOR, CHRIS A 599.0 URINARY TRACT INFECTION 07/12/2012 CARMEN RAILWAY EQUIPMENT OPERATOR, CHRIS A 703.0 INGROWN TOENAIL (infection) 07/12/2012 MIEKY RAILWAY EQUIPMENT OPERATOR, LYNN S 599.0 URINARY TRACT INFECTION 07/12/2012 MIKEY RAILWAY EQUIPMENT OPERATOR, LYNN S 703.0 INGROWN TOENAIL (infection) 07/12/2012 GILES RAILWAY EQUIPMENT OPERATOR, EDMUND T 599.0 URINARY TRACT INFECTION 07/12/2012 GILES RAILWAY EQUIPMENT OPERATOR, EDMUND T 703.0 INGROWN TOENAIL (infection) 07/12/2012 IGLES RAILWAY EQUIPMENT OPERATOR, EDMUND T 599.0 URINARY TRACT INFECTION 07/12/2012 GILES RAILWAY EQUIPMENT OPERATOR, EDMUND T 703.0 INGROWN TOENAIL (infection) 07/12/2012 MIKEY RAILWAY EQUIPMENT OPERATOR, LYNN S 599.0 URINARY TRACT INFECTION 07/12/2012 MIKEY RAILWAY EQUIPMENT OPERATOR, LYNN S 703.0 INGROWN TOENAIL (INFECTION) 07/12/2012 CARMEN HOLDERN, CHRIS A 599.0 URINARY TRACT INFECTION 07/12/2012 CARMEN HOLDERN, CHRIS A 703.0 INGROWN TOENAIL (INFECTION) 07/12/2012 CARMEN HOLDERN, CHRIS A 599.0 URINARY TRACT INFECTION 07/12/2012 CARMEN RAILWAY EQUIPMENT OPERATOR, CHRIS A 703.0 INGROWN TOENAIL (INFECTION) 07/12/2012 MIKEY RAILWAY EQUIPMENT OPERATOR, LYNN S 599.0 URINARY TRACT INFECTION 07/12/2012 MIKEY RAILWAY EQUIPMENT OPERATOR, LYNN S 703.0 INGROWN TOENAIL (INFECTION) 07/31/2012 WESLEY CLARK DO V25.49 CONTRACEPTION SURVEILLANCE (REPEAT RX) 07/31/2012 WESLEY CLARK DO V25.49 CONTRACEPTION SURVEILLANCE (REPEAT RX) 07/31/2012 V25.49 CONTRACEPTION SURVEILLANCE (REPEAT RX) 07/31/2012 V25.49 CONTRACEPTION SURVEILLANCE (REPEAT RX) 07/31/2012 V25.49 CONTRACEPTION SURVEILLANCE (REPEAT RX) 07/31/2012 V25.49 CONTRACEPTION SURVEILLANCE (REPEAT RX) 07/31/2012 V25.49 CONTRACEPTION SURVEILLANCE (REPEAT RX) 07/31/2012 BRIGITTE LEWIS MD V25.49 CONTRACEPTION SURVEILLANCE (REPEAT RX) 07/31/2012 WESLEY CLARK DO V25.49 CONTRACEPTION SURVEILLANCE (REPEAT RX) 07/31/2012 CHRIS MORALES APRN A V25.49 CONTRACEPTION SURVEILLANCE (REPEAT RX) 07/31/2012 LYNN JENSEN APRN V25.49 CONTRACEPTION SURVEILLANCE (REPEAT RX) 07/31/2012 LYNN JENSEN APRN S V25.49 CONTRACEPTION SURVEILLANCE (REPEAT RX) 07/31/2012 CHRIS MORALES APRN A V25.49 CONTRACEPTION SURVEILLANCE (REPEAT RX) 07/31/2012 LYNN JENSEN APRN V25.49 CONTRACEPTION SURVEILLANCE (REPEAT RX) 07/31/2012 EDMUND SKAGGS APRN V25.49 CONTRACEPTION SURVEILLANCE (REPEAT RX) 07/31/2012 EDMUND SKAGGS APRN V25.49 CONTRACEPTION SURVEILLANCE (REPEAT RX) 07/31/2012 LYNN JENSEN APRN V25.49 CONTRACEPTION SURVEILLANCE (REPEAT RX) 07/31/2012 CHRIS MORALES APRN A V25.49 CONTRACEPTION SURVEILLANCE (REPEAT RX) 07/31/2012 CHRIS MORALES APRN A V25.49 CONTRACEPTION SURVEILLANCE (REPEAT RX) 07/31/2012 LYNN JENSEN APRN S V25.49 CONTRACEPTION SURVEILLANCE (REPEAT RX) 09/13/2012 WESLEY CLARK DO 724.2 LUMBAGO/ LOW BACK PAIN 09/13/2012 724.2 LUMBAGO/ LOW BACK PAIN 09/13/2012 724.2 LUMBAGO/ LOW BACK PAIN 09/13/2012 724.2 LUMBAGO/ LOW BACK PAIN 09/13/2012 724.2 LUMBAGO/ LOW BACK PAIN 09/13/2012 724.2 LUMBAGO/ LOW BACK PAIN 09/13/2012 BRIGITTE LEWIS MD 724.2 LUMBAGO/ LOW BACK PAIN 09/13/2012 WESLEY CLARK DO 724.2 LUMBAGO/ LOW BACK PAIN 09/13/2012 CHRIS MORALES APRN A 724.2 LUMBAGO/ LOW BACK PAIN 09/13/2012 LYNN JENSEN APRN S 724.2 LUMBAGO/ LOW BACK PAIN 09/13/2012 MIKEY RAILWAY EQUIPMENT OPERATOR, LYNN S 724.2 LUMBAGO/ LOW BACK PAIN 09/13/2012 CARMEN RAILWAY EQUIPMENT OPERATOR, CHRIS A 724.2 LUMBAGO/ LOW BACK PAIN 09/13/2012 MIKEY HOLDERN, LYNN S 724.2 LUMBAGO/ LOW BACK PAIN 09/13/2012 GILES RAILWAY EQUIPMENT OPERATOR, EDMUND Rose 724.2 LUMBAGO/ LOW BACK PAIN 09/13/2012 GILES RAILWAY EQUIPMENT OPERATOR, EDMUND Rose 724.2 LUMBAGO/ LOW BACK PAIN 09/13/2012 MIKEY RAILWAY EQUIPMENT OPERATOR, LYNN S 724.2 LUMBAGO/ LOW BACK PAIN 09/13/2012 CARMEN RAILWAY EQUIPMENT OPERATOR, CHRIS A 724.2 LUMBAGO/ LOW BACK PAIN 09/13/2012 CARMEN WHITE, CHRIS A 724.2 LUMBAGO/ LOW BACK PAIN 09/13/2012 MIKEY WHITE, LYNN S 724.2 LUMBAGO/ LOW BACK PAIN 09/20/2012 WESLEY CLARK DO 112.1 CANDIDIASIS VAGINAL 09/20/2012 WESLEY CLARK DO 278.00 OBESITY 09/20/2012 WESLEY CLARK DO V74.5 STD SCREEN 09/20/2012 WESLEY CLARK DO V76.2 CERVICAL CANCER SCREENING (PAP SMEAR) 09/20/2012 112.1 CANDIDIASIS VAGINAL 09/20/2012 278.00 OBESITY 09/20/2012 V74.5 STD SCREEN 09/20/2012 V76.2 CERVICAL CANCER SCREENING (PAP SMEAR) 09/20/2012 112.1 CANDIDIASIS VAGINAL 09/20/2012 278.00 OBESITY 09/20/2012 V74.5 STD SCREEN 09/20/2012 V76.2 CERVICAL CANCER SCREENING (PAP SMEAR) 09/20/2012 112.1 CANDIDIASIS VAGINAL 09/20/2012 278.00 OBESITY 09/20/2012 V74.5 STD SCREEN 09/20/2012 V76.2 CERVICAL CANCER SCREENING (PAP SMEAR) 09/20/2012 112.1 CANDIDIASIS VAGINAL 09/20/2012 278.00 OBESITY 09/20/2012 V74.5 STD SCREEN 09/20/2012 V76.2 CERVICAL CANCER SCREENING (PAP SMEAR) 09/20/2012 112.1 CANDIDIASIS VAGINAL 09/20/2012 278.00 OBESITY 09/20/2012 V74.5 STD SCREEN 09/20/2012 V76.2 CERVICAL CANCER SCREENING (PAP SMEAR) 09/20/2012 BRIGITTE LEWIS MD 112.1 CANDIDIASIS VAGINAL 09/20/2012 BRIGITTE LEWIS MD 278.00 OBESITY 09/20/2012 BRIGITTE LEWIS MD V74.5 STD SCREEN 09/20/2012 BRIGITTE LEWIS MD V76.2 CERVICAL CANCER SCREENING (PAP SMEAR) 09/20/2012 CLARK DO, WESLEY K 112.1 CANDIDIASIS VAGINAL 09/20/2012 CLARK DO, WESLEY K 278.00 OBESITY 09/20/2012 CLARK DO, WESLEY K V74.5 STD SCREEN 09/20/2012 CLARK DO, WESLEY K V76.2 CERVICAL CANCER SCREENING (PAP SMEAR) 09/20/2012 MALLORY MORALES APRNIDI A 112.1 CANDIDIASIS VAGINAL 09/20/2012 CARMEN WHITE, CHRIS A 278.00 OBESITY 09/20/2012 CARMEN RAILWAY EQUIPMENT OPERATOR, CHRIS A V74.5 STD SCREEN 09/20/2012 CARMEN WHITE, CHRIS A V76.2 CERVICAL CANCER SCREENING (PAP SMEAR) 09/20/2012 MIKEY WHITE LYNN S 112.1 CANDIDIASIS VAGINAL 09/20/2012 MIKEY WHITE, LYNN S 278.00 OBESITY 09/20/2012 MIKEY WHITE LYNN S V74.5 STD SCREEN 09/20/2012 KELLEY JENSEN APRNNDA S V76.2 CERVICAL CANCER SCREENING (PAP SMEAR) 09/20/2012 KELLEY JENSEN APRNNDA S 112.1 CANDIDIASIS VAGINAL 09/20/2012 MIKEY WHITE LYNN S 278.00 OBESITY 09/20/2012 MIKEY RAILWAY EQUIPMENT OPERATOR, LYNN S V74.5 STD SCREEN 09/20/2012 MIKEY RAILWAY EQUIPMENT OPERATOR, LYNN S V76.2 CERVICAL CANCER SCREENING (PAP SMEAR) 09/20/2012 MALLORY MORALES APRNIDI A 112.1 CANDIDIASIS VAGINAL 09/20/2012 CARMEN RAILWAY EQUIPMENT OPERATOR, CHRIS A 278.00 OBESITY 09/20/2012 CARMEN RAILWAY EQUIPMENT OPERATOR, CHRIS A V74.5 STD SCREEN 09/20/2012 CARMEN RAILWAY EQUIPMENT OPERATOR, CHRIS A V76.2 CERVICAL CANCER SCREENING (PAP SMEAR) 09/20/2012 MIKEY RAILWAY EQUIPMENT OPERATOR, LYNN S 112.1 CANDIDIASIS VAGINAL 09/20/2012 MIKEY RAILWAY EQUIPMENT OPERATOR, LYNN S 278.00 OBESITY 09/20/2012 MIKEY RAILWAY EQUIPMENT OPERATOR, LYNN S V74.5 STD SCREEN 09/20/2012 MIKEY RAILWAY EQUIPMENT OPERATOR, LYNN S V76.2 CERVICAL CANCER SCREENING (PAP SMEAR) 09/20/2012 GILES WHITE EDMUND T 112.1 CANDIDIASIS VAGINAL 09/20/2012 GILES RAILWAY EQUIPMENT OPERATOR, EDMUND T 278.00 OBESITY 09/20/2012 GILES RAILWAY EQUIPMENT OPERATOR, EDMUND T V74.5 STD SCREEN 09/20/2012 GILES RAILWAY EQUIPMENT OPERATOR, EDMUND T V76.2 CERVICAL CANCER SCREENING (PAP SMEAR) 09/20/2012 EDMUND SKAGGS APRN T 112.1 CANDIDIASIS VAGINAL 09/20/2012 GILES RAILWAY EQUIPMENT OPERATOR, EDMUND T 278.00 OBESITY 09/20/2012 GILES RAILWAY EQUIPMENT OPERATOR, EDMUND T V74.5 STD SCREEN 09/20/2012 GILES RAILWAY EQUIPMENT OPERATOR, EDMUND T V76.2 CERVICAL CANCER SCREENING (PAP SMEAR) 09/20/2012 MIKEY WHITE LYNN S 112.1 CANDIDIASIS VAGINAL 09/20/2012 MIKEY WHITE, LYNN S 278.00 OBESITY 09/20/2012 MIKYE WHITE, LYNN S V74.5 STD SCREEN 09/20/2012 MIKEY WHITE LYNN S V76.2 CERVICAL CANCER SCREENING (PAP SMEAR) 09/20/2012 CARMEN APRN, CHRIS A 112.1 CANDIDIASIS VAGINAL 09/20/2012 CARMEN RAILWAY EQUIPMENT OPERATOR, CHRIS A 278.00 OBESITY 09/20/2012 CARMEN RAILWAY EQUIPMENT OPERATOR, CHRIS A V74.5 STD SCREEN 09/20/2012 CARMEN RAILWAY EQUIPMENT OPERATOR, CHRIS A V76.2 CERVICAL CANCER SCREENING (PAP SMEAR) 09/20/2012 CARMEN RAILWAY EQUIPMENT OPERATOR, CHRIS A 112.1 CANDIDIASIS VAGINAL 09/20/2012 CARMEN RAILWAY EQUIPMENT OPERATOR, CHRIS A 278.00 OBESITY 09/20/2012 CARMEN RAILWAY EQUIPMENT OPERATOR, CHRIS A V74.5 STD SCREEN 09/20/2012 CARMEN RAILWAY EQUIPMENT OPERATOR, CHRIS A V76.2 CERVICAL CANCER SCREENING (PAP SMEAR) 09/20/2012 MIKEY WHITE, LYNN S 112.1 CANDIDIASIS VAGINAL 09/20/2012 MIKEY RAILWAY EQUIPMENT OPERATOR, LYNN S 278.00 OBESITY 09/20/2012 MIKEY RAILWAY EQUIPMENT OPERATOR, LYNN S V74.5 STD SCREEN 09/20/2012 MIKEY RAILWAY EQUIPMENT OPERATOR, LYNN S V76.2 CERVICAL CANCER SCREENING (PAP SMEAR) 10/28/2012 346.90 MIGRAINE HEADACHE 10/28/2012 346.90 MIGRAINE HEADACHE 10/28/2012 346.90 MIGRAINE HEADACHE 10/28/2012 346.90 MIGRAINE HEADACHE 10/28/2012 BRIGITTE LEWIS MD 346.90 MIGRAINE HEADACHE 10/28/2012 WESLEY CLARK DO 346.90 MIGRAINE HEADACHE 10/28/2012 CARMNE RAILWAY EQUIPMENT OPERATOR, CHRIS A 346.90 MIGRAINE HEADACHE 10/28/2012 MIKEY RAILWAY EQUIPMENT OPERATOR, LYNN S 346.90 MIGRAINE HEADACHE 10/28/2012 MIKEY RAILWAY EQUIPMENT OPERATOR, LYNN S 346.90 MIGRAINE HEADACHE 10/28/2012 CARMEN RAILWAY EQUIPMENT OPERATOR, CHRIS A 346.90 MIGRAINE HEADACHE 10/28/2012 MIKEY RAILWAY EQUIPMENT OPERATOR, LYNN S 346.90 MIGRAINE HEADACHE 10/28/2012 EDMUND SKAGGS APRN 346.90 MIGRAINE HEADACHE 10/28/2012 EDMUND SKAGGS APRN T 346.90 MIGRAINE HEADACHE 10/28/2012 MIKEY RAILWAY EQUIPMENT OPERATOR, YLNN S 346.90 MIGRAINE HEADACHE 10/28/2012 CARMEN RAILWAY EQUIPMENT OPERATOR, CHRIS A 346.90 MIGRAINE HEADACHE 10/28/2012 CARMEN RAILWAY EQUIPMENT OPERATOR, CHRIS A 346.90 MIGRAINE HEADACHE 10/28/2012 MIKEY RAILWAY EQUIPMENT OPERATOR, LYNN S 346.90 MIGRAINE HEADACHE 02/16/2013 466.0 BRONCHITIS, ACUTE 02/16/2013 BRIGITTE LEWIS MD 466.0 BRONCHITIS, ACUTE 02/16/2013 WESLEY CLARK DO 466.0 BRONCHITIS, ACUTE 02/16/2013 CARMEN RAILWAY EQUIPMENT OPERATOR, CHRIS A 466.0 BRONCHITIS, ACUTE 02/16/2013 MIKEY RAILWAY EQUIPMENT OPERATOR, LYNN S 466.0 BRONCHITIS, ACUTE 02/16/2013 MIKEY RAILWAY EQUIPMENT OPERATOR, LYNN S 466.0 BRONCHITIS, ACUTE 02/16/2013 CARMEN RAILWAY EQUIPMENT OPERATOR, CHRIS A 466.0 BRONCHITIS, ACUTE 02/16/2013 MIKEY WHITE, LYNN S 466.0 BRONCHITIS, ACUTE 02/16/2013 EDMUND SKAGGS APRN 466.0 BRONCHITIS, ACUTE 02/16/2013 EDMUND SKAGGS APRN T 466.0 BRONCHITIS, ACUTE 02/16/2013 MIKEY RAILWAY EQUIPMENT OPERATOR, LYNN S 466.0 BRONCHITIS, ACUTE 02/16/2013 CARMEN RAILWAY EQUIPMENT OPERATOR, CHRIS A 466.0 BRONCHITIS, ACUTE 02/16/2013 CARMEN RAILWAY EQUIPMENT OPERATOR, CHRIS A 466.0 BRONCHITIS, ACUTE 02/16/2013 MIKEY RAILWAY EQUIPMENT OPERATOR, LYNN S 466.0 BRONCHITIS, ACUTE 09/06/2013 MIKEY RAILWAY EQUIPMENT OPERATOR, LYNN S 309.0 ADJUSTMENT DISORDER WITH DEPRESSED MOOD 09/06/2013 MIKEY RAILWAY EQUIPMENT OPERATOR, LYNN S 780.52 INSOMNIA UNSPECIFIED 09/06/2013 MIKEY RAILWAY EQUIPMENT OPERATOR, LYNN S 309.0 ADJUSTMENT DISORDER WITH DEPRESSED MOOD 09/06/2013 MIKEY RAILWAY EQUIPMENT OPERATOR, LYNN S 780.52 INSOMNIA UNSPECIFIED 09/06/2013 CARMEN RAILWAY EQUIPMENT OPERATOR, CHRIS A 309.0 ADJUSTMENT DISORDER WITH DEPRESSED MOOD 09/06/2013 CARMEN RAILWAY EQUIPMENT OPERATOR, CHRIS A 780.52 INSOMNIA UNSPECIFIED 09/06/2013 MIKEY RAILWAY EQUIPMENT OPERATOR, LYNN S 309.0 ADJUSTMENT DISORDER WITH DEPRESSED MOOD 09/06/2013 MIKEY RAILWAY EQUIPMENT OPERATOR, LYNN S 780.52 INSOMNIA UNSPECIFIED 09/06/2013 EDMUND SKAGGS APRN 309.0 ADJUSTMENT DISORDER WITH DEPRESSED MOOD 09/06/2013 EDMUND SKAGGS APRN 780.52 INSOMNIA UNSPECIFIED 09/06/2013 EDMUND SKAGGS APRN 309.0 ADJUSTMENT DISORDER WITH DEPRESSED MOOD 09/06/2013 EDMUND SKAGGS APRN 780.52 INSOMNIA UNSPECIFIED 09/06/2013 MIKEY HOLDERNKELLEYLYNN S 309.0 ADJUSTMENT DISORDER WITH DEPRESSED MOOD 09/06/2013 MIKEY RAILWAY EQUIPMENT OPERATOR, LYNN S 780.52 INSOMNIA UNSPECIFIED 09/06/2013 CARMEN RAILWAY EQUIPMENT OPERATOR, CHRIS A 309.0 ADJUSTMENT DISORDER WITH DEPRESSED MOOD 09/06/2013 CARMEN RAILWAY EQUIPMENT OPERATOR, CHRIS A 780.52 INSOMNIA UNSPECIFIED 09/06/2013 CARMEN RAILWAY EQUIPMENT OPERATOR, CHRIS A 309.0 ADJUSTMENT DISORDER WITH DEPRESSED MOOD 09/06/2013 CARMEN RAILWAY EQUIPMENT OPERATOR, CHRIS A 780.52 INSOMNIA UNSPECIFIED 09/06/2013 MIKEY RAILWAY EQUIPMENT OPERATOR LYNN S 309.0 ADJUSTMENT DISORDER WITH DEPRESSED MOOD 09/06/2013 KELLEY JENSEN APRNNDA S 780.52 INSOMNIA UNSPECIFIED 10/29/2013 CARMEN RAILWAY EQUIPMENT OPERATOR, CHRIS A 216.9 MOLE/NEVUS - SITE UNSPECIFIED 10/29/2013 CARMEN RAILWAY EQUIPMENT OPERATOR, CHRIS A 780.79 fatigue 10/29/2013 CRAMEN RAILWAY EQUIPMENT OPERATOR, CHRIS A 783.1 WEIGHT GAIN ABNORMAL 10/29/2013 CARMEN RAILWAY EQUIPMENT OPERATOR, CHRIS A V18.0 FAMILY HISTORY OF DIABETES MELLITUS 10/29/2013 MIKEY WHITE LYNN S 216.9 MOLE/NEVUS - SITE UNSPECIFIED 10/29/2013 KELLEY JENSEN APRNNDA S 780.79 fatigue 10/29/2013 KELLEY JENSEN APRNNDA S 783.1 WEIGHT GAIN ABNORMAL 10/29/2013 JHONNY JENSEN APRNA S V18.0 FAMILY HISTORY OF DIABETES MELLITUS 10/29/2013 EDMUND SKAGGS APRN T 216.9 MOLE/NEVUS - SITE UNSPECIFIED 10/29/2013 GILES WHITE EDMUND T 780.79 fatigue 10/29/2013 GILES WHITE EDMUND T 783.1 WEIGHT GAIN ABNORMAL 10/29/2013 EDMUND SKAGGS APRN T V18.0 FAMILY HISTORY OF DIABETES MELLITUS 10/29/2013 EDMUND SKAGGS APRN T 216.9 MOLE/NEVUS - SITE UNSPECIFIED 10/29/2013 GILES WHITE EDMUND T 780.79 fatigue 10/29/2013 GILES WHITE EDMUND T 783.1 WEIGHT GAIN ABNORMAL 10/29/2013 EDMUND SKAGGS APRN T V18.0 FAMILY HISTORY OF DIABETES MELLITUS 10/29/2013 KELLEY JENSEN APRNNDA S 216.9 MOLE/NEVUS - SITE UNSPECIFIED 10/29/2013 KELLEY JENSEN APRNNDA S 780.79 FATIGUE 10/29/2013 KELLEY JENSEN APRNNDA S 783.1 WEIGHT GAIN ABNORMAL 10/29/2013 KELLEY JENSEN APRNNDA S V18.0 FAMILY HISTORY OF DIABETES MELLITUS 10/29/2013 CARMENPARKER WHITE, CHRIS A 216.9 MOLE/NEVUS - SITE UNSPECIFIED 10/29/2013 CARMEN HOLDERN, CHRIS A 780.79 FATIGUE 10/29/2013 CARMEN RAILWAY EQUIPMENT OPERATOR, CHRIS A 783.1 WEIGHT GAIN ABNORMAL 10/29/2013 CARMEN RAILWAY EQUIPMENT OPERATOR, CHRIS A V18.0 FAMILY HISTORY OF DIABETES MELLITUS 10/29/2013 CARMEN RAILWAY EQUIPMENT OPERATOR, CHRIS A 216.9 MOLE/NEVUS - SITE UNSPECIFIED 10/29/2013 CARMEN RAILWAY EQUIPMENT OPERATOR, CHRIS A 780.79 FATIGUE 10/29/2013 CARMEN RAILWAY EQUIPMENT OPERATOR, CHRIS A 783.1 WEIGHT GAIN ABNORMAL 10/29/2013 CARMEN RAILWAY EQUIPMENT OPERATOR, CHRIS A V18.0 FAMILY HISTORY OF DIABETES MELLITUS 10/29/2013 JHONNY JENSEN APRNA S 216.9 MOLE/NEVUS - SITE UNSPECIFIED 10/29/2013 JHONNY JENSEN APRNA S 780.79 FATIGUE 10/29/2013 LYNN JENSEN APRN S 783.1 WEIGHT GAIN ABNORMAL 10/29/2013 LYNN JENSEN APRN S V18.0 FAMILY HISTORY OF DIABETES MELLITUS 10/30/2013 LYNN JENSEN APRN S 251.1 HYPERINSULINISM 10/30/2013 EDMUND SKAGGS APRN 251.1 HYPERINSULINISM 10/30/2013 DEMUND SKAGGS APRN 251.1 HYPERINSULINISM 10/30/2013 LYNN JENSEN APRN S 251.1 HYPERINSULINISM 10/30/2013 CHRIS MORALES APRN A 251.1 HYPERINSULINISM 10/30/2013 CHRIS MORALES APRN A 251.1 HYPERINSULINISM 10/30/2013 LYNN JENSEN APRN S 251.1 HYPERINSULINISM 11/13/2013 EDMUND SKAGGS APRN 701.9 SKIN TAG 11/13/2013 EDMUND SKAGGS APRN 701.9 SKIN TAG 11/13/2013 LYNN JENSEN APRN S 701.9 SKIN TAG 11/13/2013 CARMEN WHITE, CHRIS A 701.9 SKIN TAG 11/13/2013 CARMEN WHITE, CHRIS A 701.9 SKIN TAG 11/13/2013 LYNN JENSEN APRN S 701.9 SKIN TAG 02/26/2014 CARMEN HOLDERN, CHRIS A 599.0 URINARY TRACT INFECTION 02/26/2014 MALLORY MORALES APRNIDI A 599.0 URINARY TRACT INFECTION 02/26/2014 LYNN JENSEN APRN S 599.0 URINARY TRACT INFECTION Procedures Code Description [place] [address] URINE TEST (IN-HOUSE) 07/31/2012 80726 UA W/ CULTURE IF INDICATED 07/31/2012 34872 THERAPUTIC INJ SQ/IM 07/31/2012 J1055 DEPO-PROVERA INJ 150 MG 07/31/2012 75913 CULTURE URINE 60886 UA W/ CULTURE IF INDICATED 09/13/2012 09323 CULTURE URINE 08/2012 92571 GC/CHLAM PROBE (STATE) 09/20/2012 36422 PAP SMEAR 2012 Q0091 PAP SMEAR OBTAIN SMEAR 09/20/2012 66063 TRICHOMONAS (IN-HOUSE) 09/20/2012 50550 CULTURE UROGENITAL 09/21/2012 49438 URINE TEST (IN-HOUSE) 10/27/2012 J1050 DEPO PROVERA 74231 THERAPUTIC INJ SQ/IM 10/27/2012 38669 UA LONG DIP 01/02 28108 CULTURE URINE 73637 URINE TEST (IN-HOUSE) 02/05/2013 92178 THERAPUTIC INJ SQ/IM 02/05/2013 J1050 DEPO PROVERA 94864 UA LONG DIP 03/22 J1050 DEPO PROVERA 31016 URINE TEST (IN-HOUSE) 07/27/2013 96308 THERAPUTIC INJ SQ/IM 07/27/2013 46803 UA W/ CULTURE IF INDICATED 08/02/2013 38710 CULTURE URINE 74658 UA W/ CULTURE IF INDICATED 10/16/2013 95291 CULTURE URINE 11/2013 80764 UA W/ CULTURE IF INDICATED 10/29/2013 60994 CULTURE URINE 82299 TEST, URINE (IN-HOUSE) 10/29/2013 62777 THERAPUTIC INJ SQ/IM 10/29/2013 J1050 DEPO PROVERA 87755 ROUTINE VENIPUNCTURE 10/30/2013 58917 A1C (IN-HOUSE) 68581 CBC 10/30/2013 63753 CMP 10/30/2013 26332 LIPID PANEL 10/30 [id number] GFR CALC (RESULT ONLY) 10/30/2013 04316 TSH 10/30/2013 22865 INSULIN LEVEL 78383 SKIN TAG REM 1-15 12/11/2013 92184 ROUTINE VENIPUNCTURE 10/18/2014 15954 INSULIN LEVEL 01/2015 60134 UA LONG DIP 10/22 04398 CULTURE URINE 06/2015 Results Encounters ACCT No. Visit Date/Time Discharge Status Pt. Type Provider Facility Loc./Unit Complaint [id number] 10/22/2014 10:18:00 10/22/2014 23: 59:59 CLS Outpatient LYNN JENSEN APRN [id number] 02/26/2014 15:40:00 02/26/2014 23: 59:59 CLS Outpatient CHRIS MORALES APRN [id number] 02/20/2014 00:00:00 02/20/2014 23: 59:59 CLS Outpatient CHRIS MORALES APRN A [id number] 12/31/2013 08:22:00 12/31/2013 23: 59:59 CLS Outpatient LYNN JENSEN APRN [id number] 12/11/2013 14:15:00 12/11/2013 23: 59:59 CLS Outpatient EDMUND SKAGGS APRN [id number] 11/13/2013 14:24:00 11/13/2013 23: 59:59 CLS Outpatient EDMUND SKAGGS APRN [id number] 10/30/2013 08:21:00 10/30/2013 23: 59:59 CLS Outpatient LYNN JENSEN APRN [id number] 10/29/2013 15:22:00 10/29/2013 23: 59:59 CLS Outpatient CHRIS MORALES APRN A [id number] 10/16/2013 08:26:00 10/16/2013 23: 59:59 CLS Outpatient LYNN JENSEN APRN [id number] 09/06/2013 13:09:00 09/06/2013 23: 59:59 CLS Outpatient LYNN JENSEN APRN [id number] 08/02/2013 08:24:00 08/02/2013 23: 59:59 CLS Outpatient CHRIS MORALES APRN A [id number] 07/27/2013 16:48:00 07/27/2013 23: 59:59 CLS Outpatient WESLEY CLARK DO [id number] 03/22/2013 10:46:00 03/22/2013 23: 59:59 CLS Outpatient BRIGITTE LEWIS MD [id number] 10/28/2012 10:19:00 10/28/2012 23: 59:59 CLS Outpatient [id number] 10/27/2012 16:14:00 10/27/2012 23: 59:59 CLS Outpatient [id number] 09/20/2012 10:55:00 09/20/2012 23: 59:59 CLS Outpatient WESLEY CLARK DO [id number] 07/31/2012 13:14:00 07/31/2012 23: 59:59 CLS Outpatient WESLEY CLARK DO [id number] 07/12/2012 15:26:00 07/12/2012 23: 59:59 CLS Outpatient [id number] 02/16/2013 13:36:00 Document Registration [id number] 02/05/2013 09:28:00 Document Registration [id number] 01/02/2013 08:25:00 Document Registration
--- NOTE | 2016-10-11 13:49 | Diagnostic Imaging Report ---
EXAMINATION: Right breast diagnostic mammogram with a Computer Aided Detection (CAD) system. INDICATION: Asymmetry along the outer aspect of the right breast. FINDINGS: The right breast asymmetry appears similar to the comparison exam of 02/21/2016 which may relate to summation artifact of parenchyma. No adverse development from the prior exam. Scattered benign-appearing calcifications are seen. IMPRESSION: Stable asymmetry in the outer aspect of the right breast with no underlying lesion seen. A followup bilateral mammogram in 6 months is recommended to followup this asymmetry as a screening exam in light of the family history of breast cancer in the patient's mother at age 34. ACR BI-RADS Category 3: Probably benign findings. Result letter will be mailed to the patient. Note: At least 10% of breast cancer is not imaged by mammography. Dictated by: Dictated on workstation # [id number]
== END ==
LOC: RAD 09:02
PROVIDERS: ATTEND Family Medicine
DX: N64.89 Other specified disorders of breast (principal)

== ENCOUNTER 2021-03-30 17:07 | Emergency (ER) | payer MEDICAID ==
[~2021-03-30] VITALS: Ht 167 cm; Wt 127.0 kg
[2021-03-30] MEDS ORDERED: TETANUS,DIPTH,PERTUSS P/F (BOOSTRIX) 0.5 ML VIAL IM ONE (17:15)
[2021-03-30 17:17] VITALS: BP 142/99
--- NOTE | 2021-03-30 17:24 | ED Integumentary General ---
General Chief Complaint: Skin/Wound Problems Stated Complaint: NEEDS TETANUS SHOT Nursing Triage Note: pt reports she got an abrasion on her r index finger when moving stuff in her yard. pt reports she is due for a tetanus shot. Source: patient Exam Limitations: no limitations History of Present Illness Date Seen by Provider: Mar 30, 2021 Time Seen by Provider: 17:23 Initial Comments To ER with abrasion to the right pointer finger from moving stuff in her yard. Was scratched with a lee ann wire. She needs a tetanus shot she states. Timing/Duration: constant Severity: moderate Associated Symptoms: denies symptoms Allergies and Home Medications Allergies Coded Allergies: ciprofloxacin (Verified Allergy, Unknown, 03/30/21) sulfamethoxazole (Verified Allergy, Unknown, 03/30/21) trimethoprim (Verified Allergy, Unknown, 03/30/21) Home Medications Losartan Potassium 50 Mg Tablet, 50 MG PO DAILY, (Reported) Sulfamethoxazole/Trimethoprim 1 Each Tablet, 1 EACH PO BID Prescribed by: TONY SNYDER on 07/10/12 277 Tramadol Hcl 50 Mg Tab, 50 MG PO Q6H, (Reported) Patient Home Medication List Home Medication List Reviewed: Yes Review of Systems Review of Systems Constitutional: see HPI EENTM: see HPI Respiratory: no symptoms reported Cardiovascular: no symptoms reported Genitourinary: no symptoms reported Musculoskeletal: no symptoms reported Skin: see HPI Psychiatric/Neurological: No Symptoms Reported Past [id number]-[id number]-[id number] Hx Patient Social History Tobacco Use?: No Smoking Status: Never a Smoker Substance use?: No Alcohol Use?: Yes Alcohol Frequency: Once in a while Pt feels they are or have been: No Past Medical History Surgery/Hospitalization HX: sx: lithrotripsy, l knee scope, t/a pmh: arthritis, anxiety Reproductive Disorders: No Physical Exam Vital Signs Vital Signs - First Documented 03/30/21 17:17 Temp 36.9 Pulse 98 Resp 18 B/P (MAP) 142/99 (113) Pulse Ox 97 Capillary Refill : Less Than 3 Seconds General Appearance: WD/WN, no apparent distress HEENT: PERRL/EOMI, normal ENT inspection Neck: non-tender, full range of motion Respiratory: no respiratory distress, no accessory muscle use Neurologic/Psychiatric: alert, normal mood/affect, oriented x 3 Skin: normal color, warm/dry Skin Problem Location: upper extremities Skin Problem Character: other (To the ulnar side middle phalanx right pointer finger) Progress/Results/Core Measures Results/Orders My Orders Orders - WILLIAMS PERLA APRN Dipht,Pertuss(Acell),Tet Adult (Boostrix (03/30/21 17:15) Vital Signs/I&O 03/30/21 17:17 Temp 36.9 Pulse 98 Resp 18 B/P (MAP) 142/99 (113) Pulse Ox 97 Blood Pressure Mean: 113 Departure Communication (Admissions) Wound does not need any care, she is just here for a tetanus shot. Impression Primary Impression: Skin abrasion Disposition: HOME, SELF-CARE Condition: Stable Departure-Patient Inst. Decision time for Depature: 17:24 Referrals: JOSE CRUZ SCOTT DO (PCP/Family) Primary Care Physician Patient Instructions: Abrasions ED Add. Discharge Instructions: All discharge instructions reviewed with patient and/or family. Voiced understanding. WILLIAMS PERLA APRN Mar 30, 2021 17:24
== END 2021-03-30 17:30 | disposition home or self-care (01) ==
LOC: EDUNIT# 17:07 → ER 17:10
DX: S60.410A Abrasion of right index finger, initial encounter (principal); Z23 Encounter for immunization; W26.8XXA Contact with other sharp object(s), not elsewhere classified, initial encounter
CPT/HCPCS: 90715; 99284